=== PATIENT | male | born 1990 | race Caucasian/White ===

== ENCOUNTER 2018-06-22 16:21 | Observation (INO) | payer SELFPAY ==
--- NOTE | 2018-06-22 16:52 | EDPHY ---
H & P Time Seen by Provider: 06/22/18 16:41 HPI/ROS: CHIEF COMPLAINT: Swallowed balloons of drugs HISTORY OF PRESENT ILLNESS: The patient is a Pk Whitfielde who tells me his name is Miguel. Her interview was had through the spanish interpreter. Police brought him in because they saw him swallowing balloons in the parking lot. They assumed that there full of heroin or cocaine. The patient is tachycardic and hypertensive but tells me has no complaints and does not feel ill and does not wish to be here. He does not wish to have any interventions. Severity: Mild Modifying factors: None REVIEW OF SYSTEMS: Constitutional: denies: chills, fever, recent illness, recent injury EENTM: denies: blurred vision, double vision, nose congestion Respiratory: denies: cough, shortness of breath Cardiac: denies: chest pain, irregular heart rate, lightheadedness, palpitations Gastrointestinal/Abdominal: denies: abdominal pain, diarrhea, nausea, vomiting, blood streaked stools Genitourinary: denies: dysuria, frequency, hematuria, pain Musculoskeletal: denies: joint pain, muscle pain Skin: denies: lesions, rash, jaundice, bruising Neurological: denies: headache, numbness, paresthesia, tingling, dizziness, weakness Hematologic/Lymphatic: denies: blood clots, easy bleeding, easy bruising Immunologic/allergic: denies: HIV/AIDS, transplant 10 systems reviewed and negative except as noted EXAM: GENERAL: Disheveled, in no acute distress. HEAD: Atraumatic, normocephalic. EYES: Pupils equal round and reactive to light, extraocular movements intact, sclera anicteric, conjunctiva are normal. ENT: TMs normal, nares patent, oropharynx clear without exudates. Moist mucous membranes. NECK: Normal range of motion, supple without lymphadenopathy or JVD. LUNGS: Breath sounds clear to auscultation bilaterally and equal. No wheezes rales or rhonchi. HEART: Tachycardic, Regular rate and rhythm without murmurs, rubs or gallops. ABDOMEN: Soft, nontender, normoactive bowel sounds. No guarding, no rebound. No masses appreciated. BACK: No CVA tenderness, no spinal tenderness, step-offs or deformities EXTREMITIES: Normal range of motion, no pitting or edema. No clubbing or cyanosis. NEUROLOGICAL: Cranial nerves II through XII grossly intact. Normal speech, normal gait. 5/5 strength, normal movement in all extremities, normal sensation , normal reflexes PSYCH: Normal mood, normal affect. SKIN: Warm, dry, normal turgor, no visible rashes or lesions. Source: Patient, Police Exam Limitations: Language barrier - Medical/Surgical History Hx Asthma: No Hx Chronic Respiratory Disease: No Hx Diabetes: No Hx Cardiac Disease: No Hx Renal Disease: No Hx Cirrhosis: No Hx Alcoholism: No Hx HIV/AIDS: No - Family History Significant Family History: No pertinent family hx - Social History Alcohol Use: Sober Constitutional: Initial Vital Signs Temperature (C) 36.3 C 06/22/18 16:48 Heart Rate 140 H 06/22/18 16:48 Respiratory Rate 18 06/22/18 16:48 Blood Pressure 170/105 H 06/22/18 16:48 O2 Sat (%) 94 06/22/18 16:48 O2 Delivery Mode Room Air Allergies/Adverse Reactions: No Known Allergies Allergy (Unverified 06/22/18 17:53) Home Medications: Medication Instructions Recorded NK [No Known Home Meds] 06/22/18 Medical Decision Making - Diagnostics Imaging Results: Imaging Impressions Abdomen X-Ray 06/22/18 16:48 Impression: Abnormal loops of small bowel. Enteritis? Chest X-Ray 06/22/18 16:48 Impression: No acute findings. Imaging: Discussed imaging studies w/ call center nurse Radiologist ED Course/Re-evaluation: The patient is refusing medical care or evaluation. He does consent to an x- ray if we will let him drink water. He refuses IV fluids. He is tachycardic and hypertensive possibly from drug ingestion verses the anxiety of being arrested. He is currently mentating normally. I asked for an ethics consult and we spoke with case management. They agree that he has the right to refuse treatment or evaluation as long as he is mentating normally. 5:15 p.m. the patient came back from x-ray having refuses x-ray because he did not want to take his pants down. Will perform x-ray with pants on. Police tell us that this was part of a sting operation whether planning to by 5 g of heroin and 2g of cocaine from the patient. 5:30 p.m. I discussed the case with toxicology. Case [id number]. The physician Dr. Mejia was consulted. I have placed the patient on a medical detainer and will admit to the hospital service. Will have Narcan at the bedside as per recommendations of toxicology. Differential Diagnosis: Partial list of the Differential diagnosis considered include but were not limited to; anxiety, body packing, toxidrome and although unlikely based on the history and physical exam, I also considered arrhythmia, infection. Critical Care Time: Critical care time spent by me, Dr. Martinez exclusive with this patient was 35 minutes, exclusive of the PA time exclusive of procedures. The organ system that was at risk was cardiovascular and I gave treatment, ethics consultation, consultation and admission to prevent worsening of the patient's condition Departure - Departure Disposition: [facility] Inpatient Acute Condition: Critical
[2018-06-22] MEDS ORDERED: ONDANSETRON DISINTEGRATING 4 MG TAB PO PRN (17:54)
[2018-06-22] MEDS ORDERED: LORazepam 2 MG/ML INJ IVP PRN (17:54)
[2018-06-22] MEDS ORDERED: LORazepam 0.5 MG TAB PO PRN (17:54)
[2018-06-22] MEDS ORDERED: ONDANSETRON 4 MG/2 ML VIAL IVP PRN (17:54)
--- NOTE | 2018-06-22 18:43 | GHP ---
[f rep st] HISTORY AND PHYSICAL DATE OF ADMISSION: 06/22/2018 HISTORY OF PRESENT ILLNESS: The patient is a pleasant 31-year-old gentleman with minimal past medica l history, presents to the hospital today. It sounds like he was part of a sting operation and some police officers had attempted to buy drugs from him, and he ate 5 g of heroin and an undisclosed amou nt of cocaine, presents to the emergency department for a welfare check. When I speak with the patient, he is obviously intoxicated on cocaine, tachycardic, tremulous but oth erwise without complaints. He denies recent fever, chills, cough, sputum, nausea, vomiting, diarrhea . REVIEW OF SYSTEMS: Complete 10-point review of systems conducted and negative except as noted in the HPI. PAST MEDICAL HISTORY: He denies. ALLERGIES: None. HOME MEDICATIONS: None. SOCIAL HISTORY: Drug use. Per some he smelled like alcohol. I did not notice it. FAMILY HISTORY: He denies. PHYSICAL EXAMINATION: VITAL SIGNS: Temp 36.3, blood pressure 170/105, pulse 140, breathing 18 times a minute, 94% on room air. GENERAL: Intoxicated with cocaine pleasant. HEENT: Injected sclerae. Oropharynx clear. Mucous membranes are moist. NECK: Supple. No lymphadenopathy or JVD. LUNGS: Clear to auscultation bilaterally. HEART: S1, S2. Tachycardic. ABDOMEN: Soft, nontender, nondist ended. LOWER EXTREMITIES: No edema. Calves nontender. SKIN: Without rash. NEUROLOGIC: Nonfocal . LABS: Pending at this time. Abdominal x-ray and chest x-ray are pending at this time. I have discu ssed the case with Dr. Issa Martinez. ASSESSMENT AND PLAN: 31-year-old gentleman with polysubstance ingestion, [facility] 1. Cocaine ingestion. The patient appears to be intoxicated on cocaine. He is tachycardic and hype rtensive. We will follow these. Beta blockade is contraindicated. I have written him for some as-n eeded Ativan should he become agitated. Tachycardia as expected and would be expected to wear off. 2. Heroin ingestion. This is potentially more concerning. I will talk with the nursing staff about having some Narcan at the bedside. Will place him on a monitored bed. At this point in time, there is no indication for Narcan. 3. Tachycardia. This is secondary to cocaine use. 4. Prophylaxis. 5. Hypertension secondary to cocaine. DISPOSITION: Observation status. /[id number]/MODL
[2018-06-23] MEDS: ACETAMINOPHEN 325 MG TAB PO PRN ×2 (00:26→21:13)
[2018-06-23] MEDS ORDERED: NALOXONE HCL 0.4 MG/ML INJ IVP PRN (10:16)
[2018-06-23] MEDS: NICOTINE 7 MG/24 HR PATCH TD SCH (23:19)
[2018-06-24] MEDS: NICOTINE 7 MG/24 HR PATCH TD SCH (08:59)
[2018-06-24] MEDS ORDERED: PATCH REMOVAL 1 EA PATCH TD SCH (09:00)
[2018-06-24] MEDS: ACETAMINOPHEN 325 MG TAB PO PRN (09:05)
[2018-06-24 11:59] VITALS: BP 134/79
--- NOTE | 2018-06-24 14:33 | ASMTDCNOTE ---
Case Management Discharge Discharge Order Complete? Answers: Yes Patient to Obtain Answers: Other Notes: [facility] Medications Transportation Arranged Answers: Other Notes: [facility] deputies Discharge Comments Notes: 06/24/2018 Case Management Note Pt admitted after ingesting cocaine and heroin. Phone Call to Latoya Thorne for instructions on d/c. Per Latoya [facility] legal department requesting copy of warrant for any samples collected from patient. Notified RN, auditor in charge and [employer] [facility] Nehemiah Barrett (badge # [id number]) provided court warrant for stool sample. [employer] and Director of ER, ICU and PCU observed warrant. Deputy Barrett can be reached at [phone]. Pt discharged under arrest with [facility]. Date Signed: 06/24/2018 02:33 PM Electronically Signed By:Dolly Cruz RN
--- NOTE | 2018-06-24 14:34 | PDDCSUM ---
Discharge Summary Discharge Summary: Discharge diagnosis Cocaine intoxication Foreign body ingestion Patient is a 27-year-old Russian-speaking male who was brought in by police for concern of ingestion of multiple packets of cocaine and heroin. Apparently the patient was involved in an undercover drug bust and before he could be arrested he swallowed multiple packets of what was thought to be cocaine and heroin. Patient was acutely paranoid in intoxicated with cocaine on admission. He was given p.r.n. Ativan for this. Overnight his vital signs and mental status normalized. He initially refused any evaluation including abdominal films and denied any ingestion of anything. It was explained that he would not be discharged until we could be sure that he did not have a large amount of heroin and cocaine inside his body due to safety reasons. He ultimately ended up having multiple bowel movements passing multiple packets of what was thought to be either cocaine heroin or both. He never acknowledge what exactly it was that he was swallowed. The legal department ultimately got involved at the police wanted to take his feces to determine what it was that he swallowed. In any case he was discharged to [facility] with recommendation that he be isolated and monitored medically in case there was further packets of possible heroin and cocaine in his stomach that had not passed. He had completely normal vital signs and a normal mental status and was discharged in good condition for further evaluation of the [facility].
--- NOTE | 2018-06-24 14:34 | ASDISCHSUM ---
Discharge Information Plan Status:Home with No Needs Medically Cleared to Leave:06/24/2018 Discharge Date:06/24/2018 12:04 PM CM D/C Disposition:Law Enforcement/Court/Long Term ADT D/C Disposition:Law Enforcement/Court/Long Term Projected Discharge Date:06/24/2018 12:04 PM Transportation at D/C:Law Enforcement/Police Discharge Delay Reason: Follow-Up Date:06/24/2018 12:04 PM Discharge Slot: Final Diagnosis: Placement Information Patient Contact Information Contact Name:PTUPTNP Relationship: Address: Home Phone: Work Phone: City: Alternate Phone: State/Zip Code: Email: Financial Information Financial Class:Self-Pay Primary Plan Desc:SELF PAY Primary Plan Number: Secondary Plan Desc: Secondary Plan Number: Assessment Information LACE LACE Length of stay for Answers: 1 day current admission Acuity / Level of Answers: Yes Care: Did the patient have an inpatient admission? Comorbidities - select Answers: Other Notes: HTN all that apply # of Emergency department Answers: 1-2 visits in the last 6 months Social determinants Answers: History of substance abuse (ETOH, street drugs, prescription drugs, etc.) Score: 9 Date Signed: 06/24/2018 02:34 PM Electronically Signed By:Dolly Cruz RN Case Management Discharge Plan Note Case Management Discharge Discharge Order Complete? Answers: Yes Patient to Obtain Answers: [facility] Notes[facility] Transportation Arranged Answers: Other Notes: [facility] sheriff deputies Discharge Comments Notes: 06/24/2018 Case Management Note Pt admitted after ingesting cocaine and heroin. Phone Call to Latoya Thorne for instructions on d/c. Per Latoya, [facility] legal department requesting copy of warrant for any samples collected from patient. Notified RN, [facility] discharge [facility]badge # [id number][facility] provided court warrant for stool sample. [employer] and Director of ER, ICU and PCU observed warrant. Deputy Barrett can be reached at [phone]. Pt discharged under arrest with [facility]. Date Signed: 06/24/2018 02:33 PM Electronically Signed By:Dolly Cruz RN Intervention Information
== END 2018-06-24 12:04 ==
LOC: EEVIPCON 17:54 → EDBD 17:54 → F2W 19:37
PROVIDERS: ADMIT Internal Medicine; ATTEND Internal Medicine
DX: F14.929 Cocaine use, unspecified with intoxication, unspecified (principal); T18.9XXA Foreign body of alimentary tract, part unspecified, initial encounter; T40.5X1A Poisoning by cocaine, accidental (unintentional), initial encounter; Y92.9 Unspecified place or not applicable
CPT/HCPCS: G0378; J2310